=== PATIENT | male | born 1970 | race American Indian/Alaskan Native ===

== ENCOUNTER 2021-07-21 03:40 | Emergency (ER) | payer SELFPAY ==
[2021-07-21] MEDS ORDERED: SODIUM CHLORIDE 0.9% 1000 ML 1,000 ML IV ONE (04:00)
--- NOTE | 2021-07-21 04:23 | Emergency Department Report ---
HPI <JENNY SANTOS - Last Filed: 07/21/21 10:14> - HPI HPI: 50-year-old -Fil[place]ino male presents to the emergency department via EMS with a complaint of a possible overdose. At the time of my initial examination the patient is sleepy but easily arousable. Once awake he is AOx3. He claims to have been at a friend's house and asked for something to help treat his headache and that is the last thing that he remembers. He does admit to drinking "1 beer" last night, but denies any illicit drug use. EMS says that there was some report that he had taken some unknown substance from a Tylenol bottle, that did not appear to have been consistent with Tylenol. The patient was found by EMS to have pinpoint pupils and was unresponsive. They tried 4 mg of intranasal Narcan and 2 mg of IV Narcan with apparently some improvement. The patient denies any past medical history and has never been to this facility previously. During my initial H&P the patient has no physical complaints. <VÍCTOR URIBE S - Last Filed: 07/21/21 21:04> - General Chief Complaint: Overdose Time Seen by Provider: 07/21/21 03:51 ED Past Medical Hx - Past Medical History Previous Medical History?: No - Surgical History Past Surgical History?: No <VÍCTOR URIBE - Last Filed: 07/21/21 21:04> ED Review of Systems ROS: Stated complaint: OVERDOSE Other details as noted in HPI <JENNY SANTOS - Last Filed: 07/21/21 10:14> ROS: Stated complaint: OVERDOSE Other details as noted in HPI Comment: All other systems reviewed and negative Constitutional: denies: chills, fever Eyes: denies: eye pain, vision change ENT: denies: ear pain, throat pain Respiratory: denies: cough, shortness of breath Cardiovascular: denies: chest pain, palpitations Gastrointestinal: denies: abdominal pain, vomiting Genitourinary: denies: dysuria, discharge Musculoskeletal: denies: back pain, arthralgia Skin: denies: rash, lesions Neurological: other (Unresponsive episode). denies: headache <VÍCTOR URIBE S - Last Filed: 07/21/21 21:04> Physical Exam - Physical Exam Vital Signs: Vital Signs 07/21/21 07/21/21 07/21/21 03:57 04:00 04:16 Temperature 98.6 F 97.7 F Pulse Rate 82 80 80 Respiratory 16 10 L 8 L Rate Blood Pressure 129/81 131/85 Blood Pressure 140/70 133/90 [Left] O2 Sat by Pulse 98 98 98 Oximetry 07/21/21 07/21/21 07/21/21 04:30 04:46 05:00 Temperature Pulse Rate 76 76 78 Respiratory 8 L 7 L 7 L Rate Blood Pressure 127/85 131/91 136/93 Blood Pressure [Left] O2 Sat by Pulse 99 99 99 Oximetry 07/21/21 07/21/21 07/21/21 05:16 05:30 05:45 Temperature Pulse Rate 78 80 72 Respiratory 7 L 9 L 19 Rate Blood Pressure 142/93 153/88 136/98 Blood Pressure [Left] O2 Sat by Pulse 99 97 95 Oximetry 07/21/21 07/21/21 07/21/21 06:00 06:16 06:30 Temperature Pulse Rate 73 73 66 Respiratory 8 L 7 L 7 L Rate Blood Pressure 154/95 151/96 148/97 Blood Pressure [Left] O2 Sat by Pulse 96 95 98 Oximetry 07/21/21 07/21/21 07/21/21 07:00 07:16 07:30 Temperature Pulse Rate 59 L 69 64 Respiratory 13 9 L 9 L Rate Blood Pressure 153/70 131/70 127/62 Blood Pressure [Left] O2 Sat by Pulse 98 96 96 Oximetry 07/21/21 07/21/21 07/21/21 07:46 07:54 08:00 Temperature Pulse Rate 61 Respiratory 10 L 8 L Rate Blood Pressure 121/59 122/74 Blood Pressure [Left] O2 Sat by Pulse 97 99 98 Oximetry 07/21/21 08:16 Temperature Pulse Rate Respiratory Rate Blood Pressure 133/79 Blood Pressure [Left] O2 Sat by Pulse 98 Oximetry <JENNY SANTOS - Last Filed: 07/21/21 10:14> - Physical Exam Vital Signs: Vital Signs 07/21/21 07/21/21 03:57 04:00 Temperature 98.6 F 97.7 F Pulse Rate 82 80 Respiratory 16 10 L Rate Blood Pressure 140/70 133/90 [Left] O2 Sat by Pulse 98 98 Oximetry Physical Exam: GENERAL: The patient is well-developed well-nourished. HENT: Normocephalic. Atraumatic. Patient has moist mucous membranes. EYES: Extraocular motions are intact. Pupils equal reactive to light bilaterally. NECK: Supple. Trachea is midline. CHEST/LUNGS: Clear to auscultation. There is no respiratory distress noted. HEART/CARDIOVASCULAR: Regular. There is no tachycardia. There is no murmur. ABDOMEN: Abdomen is soft, nontender. Patient has normal bowel sounds. SKIN: Skin is warm and dry. NEURO: Patient is sleepy but easily arousable. Once awake he is oriented, AAO x3. Cranial nerves II through XII grossly intact. No slurred speech. No facial asymmetry. MUSCULOSKELETAL: There is no tenderness or deformity. There is no limitation range of motion. <VÍCTOR URIBE S - Last Filed: 07/21/21 21:04> ED Course Vital Signs 07/21/21 07/21/21 07/21/21 03:57 04:00 04:16 Temperature 98.6 F 97.7 F Pulse Rate 82 80 80 Respiratory 16 10 L 8 L Rate Blood Pressure 129/81 131/85 Blood Pressure 140/70 133/90 [Left] O2 Sat by Pulse 98 98 98 Oximetry 07/21/21 07/21/21 07/21/21 04:30 04:46 05:00 Temperature Pulse Rate 76 76 78 Respiratory 8 L 7 L 7 L Rate Blood Pressure 127/85 131/91 136/93 Blood Pressure [Left] O2 Sat by Pulse 99 99 99 Oximetry 07/21/21 07/21/21 07/21/21 05:16 05:30 05:45 Temperature Pulse Rate 78 80 72 Respiratory 7 L 9 L 19 Rate Blood Pressure 142/93 153/88 136/98 Blood Pressure [Left] O2 Sat by Pulse 99 97 95 Oximetry 07/21/21 07/21/21 07/21/21 06:00 06:16 06:30 Temperature Pulse Rate 73 73 66 Respiratory 8 L 7 L 7 L Rate Blood Pressure 154/95 151/96 148/97 Blood Pressure [Left] O2 Sat by Pulse 96 95 98 Oximetry 07/21/21 07/21/21 07/21/21 07:00 07:16 07:30 Temperature Pulse Rate 59 L 69 64 Respiratory 13 9 L 9 L Rate Blood Pressure 153/70 131/70 127/62 Blood Pressure [Left] O2 Sat by Pulse 98 96 96 Oximetry 07/21/21 07/21/21 07/21/21 07:46 07:54 08:00 Temperature Pulse Rate 61 Respiratory 10 L 8 L Rate Blood Pressure 121/59 122/74 Blood Pressure [Left] O2 Sat by Pulse 97 99 98 Oximetry 07/21/21 08:16 Temperature Pulse Rate Respiratory Rate Blood Pressure 133/79 Blood Pressure [Left] O2 Sat by Pulse 98 Oximetry - Reevaluation(s) Reevaluation #1: 07/21/21 10:15 pt requested to go home didn;t gve a urine sample , awake and alert no dsitress 07/21/21 10:16 <JENNY SANTOS - Last Filed: 07/21/21 10:14> Vital Signs 07/21/21 07/21/21 03:57 04:00 Temperature 98.6 F 97.7 F Pulse Rate 82 80 Respiratory 16 10 L Rate Blood Pressure 140/70 133/90 [Left] O2 Sat by Pulse 98 98 Oximetry <VÍCTOR URIBE - Last Filed: 07/21/21 21:04> ED Medical Decision Making - Lab Data Result diagrams: 07/21/21 05:25 07/21/21 05:25 <JENNY SANTOS - Last Filed: 07/21/21 10:14> - Lab Data Result diagrams: 07/21/21 05:25 07/21/21 05:25 Lab Results 07/21/21 07/21/21 07/21/21 Range/Units 05:25 05:25 05:25 WBC 7.2 (4.5-11.0) K/mm3 RBC 4.97 (3.65-5.03) M/mm3 Hgb 15.0 (11.8-15.2) gm/dl Hct 46.3 H (35.5-45.6) % MCV 93 (84-94) fl MCH 30 (28-32) pg MCHC 32 (32-34) % RDW 13.6 (13.2-15.2) % Plt Count 177 (140-440) K/mm3 Lymph % (Auto) 6.0 L (13.4-35.0) % [place] % (Auto) 6.0 (0.0-7.3) % Eos % (Auto) 0.1 (0.0-4.3) % Baso % (Auto) 2.4 H (0.0-1.8) % Lymph # (Auto) 0.4 L (1.2-5.4) K/mm3 [place] # (Auto) 0.4 (0.0-0.8) K/mm3 Eos # (Auto) 0.0 (0.0-0.4) K/mm3 Baso # (Auto) 0.2 H (0.0-0.1) K/mm3 Seg Neutrophils % 85.5 H (40.0-70.0) % Seg Neutrophils # 6.1 (1.8-7.7) K/mm3 Sodium 140 (137-145) mmol/L Potassium 5.2 H (3.6-5.0) mmol/L Chloride 102.1 (98-107) mmol/L Carbon Dioxide 29 (22-30) mmol/L Anion Gap 14 mmol/L BUN 18 (9-20) mg/dL Creatinine 1.2 (0.8-1.3) mg/dL Estimated GFR > 60 ml/min BUN/Creatinine Ratio 15 % Glucose 113 H (75-100) mg/dL Calcium 8.7 (8.4-10.2) mg/dL Total Bilirubin 0.20 (0.1-1.2) mg/dL AST 38 (5-40) units/L ALT 27 (7-56) units/L Alkaline Phosphatase 52 (35-129) units/L Ammonia 17.0 L (25-60) umol/L Total Creatine Kinase 189 H (55-170) units/L Total Protein 7.5 (6.3-8.2) g/dL Albumin 3.9 (3.9-5) g/dL Albumin/Globulin Ratio 1.1 % TSH (0.270-4.200) mlU/mL Urine Color (Yellow) Urine Turbidity (Clear) Urine pH (5.0-7.0) Ur Specific [place] (1.003-1.030) Urine Protein (Negative) mg/dL Urine Glucose (UA) (Negative) mg/dL Urine Ketones (Negative) mg/dL Urine Blood (Negative) Urine Nitrite (Negative) Urine Bilirubin (Negative) Urine Urobilinogen (<2.0) mg/dL Ur Leukocyte Esterase (Negative) Urine WBC (Auto) (0.0-6.0) /HPF Urine RBC (Auto) (0.0-6.0) /HPF Urine 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) /HPF Urine Opiates Screen Urine Methadone Screen Ur Barbiturates Screen Ur Phencyclidine Scrn Ur Amphetamines Screen U Benzodiazepines Scrn Urine Cocaine Screen U Marijuana (THC) Screen Drugs of Abuse Note Plasma/Serum Alcohol (0-0.07) % 07/21/21 07/21/21 07/21/21 Range/Units 05:25 05:25 06:59 WBC (4.5-11.0) K/mm3 RBC (3.65-5.03) M/mm3 Hgb (11.8-15.2) gm/dl Hct (35.5-45.6) % MCV (84-94) fl MCH (28-32) pg MCHC (32-34) % RDW (13.2-15.2) % Plt Count (140-440) K/mm3 Lymph % (Auto) (13.4-35.0) % [place] % (Auto) (0.0-7.3) % Eos % (Auto) (0.0-4.3) % Baso % (Auto) (0.0-1.8) % Lymph # (Auto) (1.2-5.4) K/mm3 [place] # (Auto) (0.0-0.8) K/mm3 Eos # (Auto) (0.0-0.4) K/mm3 Baso # (Auto) (0.0-0.1) K/mm3 Seg Neutrophils % (40.0-70.0) % Seg Neutrophils # (1.8-7.7) K/mm3 Sodium (137-145) mmol/L Potassium (3.6-5.0) mmol/L Chloride (98-107) mmol/L Carbon Dioxide (22-30) mmol/L Anion Gap mmol/L BUN (9-20) mg/dL Creatinine (0.8-1.3) mg/dL Estimated GFR ml/min BUN/Creatinine Ratio % Glucose (75-100) mg/dL Calcium (8.4-10.2) mg/dL Total Bilirubin (0.1-1.2) mg/dL AST (5-40) units/L ALT (7-56) units/L Alkaline Phosphatase (35-129) units/L Ammonia (25-60) umol/L Total Creatine Kinase (55-170) units/L Total Protein (6.3-8.2) g/dL Albumin (3.9-5) g/dL Albumin/Globulin Ratio % TSH 0.519 (0.270-4.200) mlU/mL Urine Color Yellow (Yellow) Urine Turbidity Clear (Clear) Urine pH 5.0 (5.0-7.0) Ur Specific [place] 1.014 (1.003-1.030) Urine Protein 30 mg/dl (Negative) mg/dL Urine Glucose (UA) 50 (Negative) mg/dL Urine Ketones Neg (Negative) mg/dL Urine Blood Mod (Negative) Urine Nitrite Neg (Negative) Urine Bilirubin Neg (Negative) Urine Urobilinogen < 2.0 (<2.0) mg/dL Ur Leukocyte Esterase Neg (Negative) Urine WBC (Auto) 1.0 (0.0-6.0) /HPF Urine RBC (Auto) 8.0 (0.0-6.0) /HPF Urine Sperm 2+ ([employer]S INTEGRATION MANAGER) /HPF Urine Opiates Screen Urine Methadone Screen Ur Barbiturates Screen Ur Phencyclidine Scrn Ur Amphetamines Screen U Benzodiazepines Scrn Urine Cocaine Screen U Marijuana (THC) Screen Drugs of Abuse Note Plasma/Serum Alcohol < 0.01 (0-0.07) % 07/21/21 Range/Units Unknown WBC (4.5-11.0) K/mm3 RBC (3.65-5.03) M/mm3 Hgb (11.8-15.2) gm/dl Hct (35.5-45.6) % MCV (84-94) fl MCH (28-32) pg MCHC (32-34) % RDW (13.2-15.2) % Plt Count (140-440) K/mm3 Lymph % (Auto) (13.4-35.0) % [place] % (Auto) (0.0-7.3) % Eos % (Auto) (0.0-4.3) % Baso % (Auto) (0.0-1.8) % Lymph # (Auto) (1.2-5.4) K/mm3 [place] # (Auto) (0.0-0.8) K/mm3 Eos # (Auto) (0.0-0.4) K/mm3 Baso # (Auto) (0.0-0.1) K/mm3 Seg Neutrophils % (40.0-70.0) % Seg Neutrophils # (1.8-7.7) K/mm3 Sodium (137-145) mmol/L Potassium (3.6-5.0) mmol/L Chloride (98-107) mmol/L Carbon Dioxide (22-30) mmol/L Anion Gap mmol/L BUN (9-20) mg/dL Creatinine (0.8-1.3) mg/dL Estimated GFR ml/min BUN/Creatinine Ratio % Glucose (75-100) mg/dL Calcium (8.4-10.2) mg/dL Total Bilirubin (0.1-1.2) mg/dL AST (5-40) units/L ALT (7-56) units/L Alkaline Phosphatase (35-129) units/L Ammonia (25-60) umol/L Total Creatine Kinase (55-170) units/L Total Protein (6.3-8.2) g/dL Albumin (3.9-5) g/dL Albumin/Globulin Ratio % TSH (0.270-4.200) mlU/mL Urine Color (Yellow) Urine Turbidity (Clear) Urine pH (5.0-7.0) Ur Specific [place] (1.003-1.030) Urine Protein (Negative) mg/dL Urine Glucose (UA) (Negative) mg/dL Urine Ketones (Negative) mg/dL Urine Blood (Negative) Urine Nitrite (Negative) Urine Bilirubin (Negative) Urine Urobilinogen (<2.0) mg/dL Ur Leukocyte Esterase (Negative) Urine WBC (Auto) (0.0-6.0) /HPF Urine RBC (Auto) (0.0-6.0) /HPF Urine 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) /HPF Urine Opiates Screen Negative Urine Methadone Screen Negative Ur Barbiturates Screen Negative Ur Phencyclidine Scrn Negative Ur Amphetamines Screen Positive U Benzodiazepines Scrn Negative Urine Cocaine Screen Positive U Marijuana (THC) Screen Positive Drugs of Abuse Note Disclamer Plasma/Serum Alcohol (0-0.07) % - EKG Data -: EKG Interpreted by Nd EKG shows normal: sinus rhythm, axis (Left axis deviation), intervals (Prolonged QT and QTC intervals), QRS complexes (LVH), ST-T waves Rate: normal - EKG Data When compared to previous EKG there are: previous EKG unavailable Interpretation: other (Sinus rhythm at 77 bpm, left axis deviation, prolonged QT and QTc intervals, LVH. No ST elevation PR) - Medical Decision Making This patient presented to the emergency department with concern for an overdose. The patient denies any intentional overdose. He received Narcan in route and at the time of my examination is sleepy but easily arousable. He is AAOx3. No obvious focal, motor or sensory deficits and his cranial nerves are intact. Patient's labs thus far have been unremarkable including CBC, metabolic panel and blood alcohol level, except for some very mild hyperkalemia with potassium level of 5.2. I am still waiting for a urinalysis and UDS. Patient will be signed out to my colleague, Dr Santos, to follow-up on the urinalysis and UDS results, as well as do a clinical reevaluation and assist with disposition. <VÍCTOR URIBE S - Last Filed: 07/21/21 21:04> Critical care attestation.: If time is entered above; I have spent that time in minutes in the direct care of this critically ill patient, excluding procedure time. <JENNY SANTOS - Last Filed: 07/21/21 10:14> Critical Care Time: No Critical care attestation.: If time is entered above; I have spent that time in minutes in the direct care of this critically ill patient, excluding procedure time. <VÍCTOR URIBE S - Last Filed: 07/21/21 21:04> ED Disposition Is pt being admited?: No Does the pt Need Aspirin: No <JENNY SANTOS - Last Filed: 07/21/21 10:14> Is pt being admited?: No <VÍCTOR URIBE - Last Filed: 07/21/21 21:04> Clinical Impression: Unresponsive episode, Hyperkalemia Accidental overdose Qualifiers: Encounter type: initial encounter Qualified Code(s): T50.901A - Poisoning by unspecified drugs, medicaments and biological substances, accidental (unintentional), initial encounter Disposition: HOME / SELF CARE / HOMELESS Condition: Stable Instructions: Anosognosia , Hyperkalemia, [id number] Referrals: PRIMARY CARE,MD [Primary Care Provider] - 3-5 Days
[2021-07-21 05:43] LABS: Basophils # (Auto) 0.2 K/mm3 (0.0-0.1); Basophils % (Auto) 2.4 % (0.0-1.8); Eosinophils % (Auto) 0.1 % (0.0-4.3); Hematocrit 46.3 % (35.5-45.6); Lymphocytes # (Auto) 0.4 K/mm3 (1.2-5.4); Mean Corpuscular HGB Conc 32 % (32-34); Mean Corpuscular Volume 93 fl (84-94); Monocytes # (Auto) 0.4 K/mm3 (0.0-0.8); Platelet Count 177 K/mm3 (140-440); Red Blood Count 4.97 M/mm3 (3.65-5.03); Red Cell Distribution Width 13.6 % (13.2-15.2)
[2021-07-21 06:07] LABS: Alanine Aminotransferase 27 units/L (7-56); Albumin 3.9 g/dL (3.9-5); BUN/Creatinine Ratio 15; Blood Urea Nitrogen 18 mg/dL (9-20); Calcium 8.7 mg/dL (8.4-10.2); Hemolysis Index 7
[2021-07-21] MEDS ORDERED: NALOXONE 2 MG/2 ML INJ ONE (06:37)
[2021-07-21] MEDS ORDERED: NALOXONE 2 MG/2 ML INJ IV ONE (06:38)
[2021-07-21] MEDS ORDERED: ONDANSETRON 4 MG/2 ML INJ ONE (06:45)
[2021-07-21] MEDS ORDERED: ONDANSETRON 4 MG/2 ML INJ IV ONE (06:49)
[2021-07-21 07:13] LABS: Bilirubin,Urine NEG (Negative); Blood,Urine MOD (Negative); Color,Urine Yellow (Yellow); Sperm,Urine 2+ /HPF (NP); Urobilinogen,Urine < 2.0 mg/dL (<2.0)
[2021-07-21 07:39] LABS: Benzodiazepines Screen,Urine Negative; Methadone Screen,Urine Negative; Opiate Screen,Urine Negative
[2021-07-21 08:01] LABS: Amphetamine Screen,Urine Positive; Cannabinoid Screen,Urine Positive; Cocaine Screen,Urine Positive
[2021-07-21 08:29] VITALS: BP 133/79
--- NOTE | 2021-07-22 13:03 | Electrocardiograph Report ---
[facility] [place] Test Date: 2021-07-21 Test Time: 04:17:47 Pat Name: PENNY EVANS Department: Room: Gender: M Machine Stuffer: ERIC : 1970 Requested By: VÍCTOR URIBE Order Number: [id number] Reading MD: Heather Helm Measurements Intervals [place] Rate: 77 P: 41 MT: 179 QRS: -18 QRSD: 104 T: 51 QT: 475 QTc: 538 Interpretive Statements Sinus rhythm Probable left atrial enlargement Left ventricular hypertrophy Prolonged QT interval No previous ECG available for comparison Electronically Signed On 07-22-2021 13:03:18 EST by Heather Helm
== END 2021-07-21 08:29 | disposition home or self-care (01) ==
LOC: ED 03:40
DX: R46.4 Slowness and poor responsiveness (principal); E87.5 Hyperkalemia; T65.91XA Toxic effect of unspecified substance, accidental (unintentional), initial encounter; Y92.89 Other specified places as the place of occurrence of the external cause; Z79.899 Other long term (current) drug therapy
CPT/HCPCS: 36415; 80053; 80307; 81001; 82140; 82550; 84443; 85025; 93005; 96361; 96374; 96375; 99284; J2310; J2405; J7030; 80320; Q0162; G0480